=== PATIENT | male | born 1980 | race American Indian/Alaskan Native ===

== ENCOUNTER 2018-10-29 12:17 | Emergency (ER) | payer OTHER ==
[~2018-10-29] VITALS: Ht 167.6 cm; Wt 64.4 kg
[2018-10-29] MEDS ORDERED: NOHOMEMEDICATIONS (14:05)
[2018-10-29] MEDS ORDERED: IBUPROFEN 400400 M2 PO (15:35)
[2018-10-29 15:44] VITALS: BP 111/74
== END 2018-10-29 15:46 | disposition home or self-care (01) ==
LOC: ER 12:17
DX: I86.1 Scrotal varices (principal); N43.3 Hydrocele, unspecified; R59.0 Localized enlarged lymph nodes